=== PATIENT | female | born 1975 | race Asian ===

== ENCOUNTER 2023-04-22 07:55 | Day surgery (SDC) | payer OTHER, SELFPAY ==
[2023-04-22] MEDS: LACTATED RINGERS 1,000 ML 42 ML IV (08:09)
[2023-04-22 08:15] VITALS: BP 137/94; PULSE 76; RESP 16; TEMP 36.8; O2SAT 95; BMI 24.2
--- NOTE | 2023-04-22 08:41 | P.HP_ITS ---
History of Present Illness History of Present Illness Date Patient Seen: 04/22/23 Time Patient Seen: 08:41 [place] [facility] [place] 48-year-old woman here for screening colonoscopy. No abdominal concerns today including abdominal pain unintentional weight loss blood per rectum. No prior colonoscopy. No family history of intestinal malignancy. [facility] Social History household members: spouse Smoking Status: Former smoker alcohol intake: never Meds Home Medications and Allergies Home Medications Medication Instructions Recorded Confirmed Type cetirizine 10 mg tablet 10 mg PO DAILY 04/22/23 04/22/23 History Allergies Allergy/AdvReac Type Severity Reaction Status Date / Time propolis (bee glue) Allergy Mild Hives Verified 04/22/23 08:13 Exam Vital Signs (past 8 hours): - 04/22/23 08:15 Temperature 98.3 F Pulse Rate 76 Respiratory Rate 16 Blood Pressure 137/94 H Pulse Oximetry 95 Oxygen Delivery Method Room Air Oxygen Delivery Method Room Air Narrative Exam Narrative: General adult woman alert oriented no acute distress Chest nonlabored respiration Extremities warm well perfused Assessment & Plan Assessment & Plan narrative: The patient requires colorectal screening and colonoscopy is recommended. Technical details were discussed. Risks, benefits, alternatives explained. Risks including but not limited to myocardial infarction, aspiration, bleeding, pain, missed lesion, incomplete examination, need for further radiographic studies, colonic perforation, and need for major abdominal surgery were discussed. All questions were answered to their satisfaction, and they are in agreement with this plan.
--- NOTE | 2023-04-22 08:51 | P.OP.COLON_ITS ---
Operative Date/Time/Diagnoses Date of procedure: 04/22/23 Time of procedure: 09:17 Pre-op diagnosis: Colorectal screening Procedure & Clinicians Study performed: Colonoscopy Same procedure as scheduled: Yes Indications: Colorectal screening Surgeon: Armaan Cassidy Procedure Notes Procedure in detail: The history and physical was performed/updated and the patient is ASA class is 2. The procedure was discussed in detail with the patient. Potential risks complications including infection, bleeding, missed diagnosis, perforation, need for surgery, and were explained. Their questions were answered and informed consent was obtained. Patient was brought to the procedure room and placed standard monitoring equipment. The patient's vital signs were monitored continuously throughout the entire procedure. Prior to starting time-out was performed. The patient was placed in the left lateral recumbent position. Procedural sedation was administered by anesthesia. Examination began with a thorough inspection of the perianal area there was no evidence of fissures, fistulae, external hemorrhoids or cutaneous malignancy. The colonoscopy scope was then placed into the anal canal and was advanced to the cecum, which was identified by the ileocecal valve , the appendiceal orifice and the confluence of the taenia. The scope was then slowly withdrawn examining colon thoroughly in all directions, irrigating it of any residual stool. The scope was retroflexed within the rectum The patient tolerated the procedure well. They will be discharged once criteria are met. The prep was of good/excellent quality. The withdrawl time was 9 minutes. FINDINGS * Unremarkable colonoscopy. No masses, polyps, inflammation * Internal hemorrhoids Specimen(s): none sent Impression: Normal colonoscopy Post-procedure Recommendations: Colonoscopy in 10 years Disposition: same day surgery
[2023-04-22 09:12] VITALS: BP 104/68; PULSE 74; RESP 18; TEMP 36.1; O2SAT 96
[2023-04-22 09:17] VITALS: BP 108/72; PULSE 67; RESP 14; O2SAT 97
[2023-04-22 09:22] VITALS: BP 118/83; PULSE 72; RESP 21; O2SAT 97
[2023-04-22 09:28] VITALS: BP 142/85; PULSE 64; RESP 15; TEMP 36.4; O2SAT 98
[2023-04-22 09:32] VITALS: BP 154/96; PULSE 60; RESP 15; TEMP 36.3; O2SAT 99
== END 2023-04-22 09:49 | disposition home or self-care (01) ==
PROVIDERS: Referring Provider Surgery; Visit Provider Surgery
PROC: 0DJD8ZZ Inspection of Lower Intestinal Tract, Via Natural or Artificial Opening Endoscopic (ICD-10-PCS; CPT 45378; principal; 2023-04-22 08:45)
DX: Z12.11 Encounter for screening for malignant neoplasm of colon (principal); K64.8 Other hemorrhoids
CPT/HCPCS: 45378